=== PATIENT | male | born 1975 | race Two or more races ===

== ENCOUNTER 2023-01-19 19:14 | Emergency (ER) | payer SELFPAY ==
[2023-01-19] MEDS ORDERED: Diphtheria,Pertussis(Acell),Tetanus Vaccine 0.5 ML Syringe IM ONE (20:25)
[2023-01-19] MEDS ORDERED: Lidocaine 1% 5 ML VIAL INJECT ONE (20:25)
[2023-01-19] MEDS ORDERED: Acetaminophen/HYDROcodone 325-5 MG Tab PO ONE (20:55)
== END 2023-01-19 21:07 | disposition home or self-care (01) ==
LOC: MW.ED 19:14
DX: S71.112A Laceration without foreign body, left thigh, initial encounter (principal); Z23 Encounter for immunization; W22.09XA Striking against other stationary object, initial encounter
CPT/HCPCS: 12004; 90471; 90715; 99282; A9270; J3490

== ENCOUNTER 2023-01-27 20:41 | Emergency (ER) | payer SELFPAY | END 2023-01-27 21:12 | disposition left against medical advice (07) | LOC: MW.ED 20:41 | DX: Z53.21 Procedure and treatment not carried out due to patient leaving prior to being seen by health care provider (principal) | CPT/HCPCS: 99281 ==